=== PATIENT | male | born 2000 | race Caucasian/White ===

== ENCOUNTER 2023-11-21 09:08 | Emergency (ER) | payer OTHER ==
[~2023-11-21] VITALS: Ht 172.7 cm; Wt 67.3 kg
[2023-11-21] MEDS: PANTOPRAZOLE 40MG VIAL IV ONE (10:35)
[2023-11-21 11:10] LABS: BASO % 0.4 % (0.0-1.0); EOS # 0.2 10^3/uL (0.0-0.5); EOS % 1.4 % (0.0-3.0); HEMATOCRIT 48.5 % (42.0-52.0); HEMOGLOBIN 16.1 g/dl (13.5-17.5); LYMPH # 3.5 10^3/uL (1.5-5.0); LYMPH % 32.2 % (24.0-44.0); MEAN CORPUSCULAR HEMOGLOBIN 29.1 pg (27.0-33.0); MEAN CORPUSCULAR HGB CONC 33.2 g/dl (32.0-36.5); MEAN CORPUSCULAR VOLUME 87.7 fl (80.0-96.0); MONO # 0.9 10^3/uL (0.0-0.8); MONO % 8.6 % (2.0-8.0); NEUTROPHILS # 6.1 10^3/uL (1.5-8.5); PLATELET COUNT, AUTOMATED 386 10^3/uL (150-450); RED BLOOD COUNT 5.53 10^6/uL (4.30-6.10); WHITE BLOOD COUNT 10.8 10^3/uL (4.0-10.0)
[2023-11-21 11:34] LABS: ETHYL ALCOHOL (ETHANOL) 0.003 % (0.000-0.010); SALICYLATE LEVEL < 3.0 MG/DL (<30)
[2023-11-21 11:43] LABS: ALBUMIN 4.6 G/DL (3.2-5.2); ALKALINE PHOSPHATASE 70 U/L (46-116); ALT/SGPT 28 U/L (7.0-40); AST/SGOT 52 U/L (<34); BILIRUBIN,DIRECT < 0.1 MG/DL (<0.4); BILIRUBIN,TOTAL 0.5 MG/DL (0.3-1.2); BLOOD UREA NITROGEN 15 MG/DL (9-23); CALCIUM LEVEL 9.3 MG/DL (8.5-10.1); CARBON DIOXIDE LEVEL 30 MMOL/L (20-31); CHLORIDE LEVEL 103 MMOL/L (98-107); CK-MB VALUE MASS < 1.0 NG/ML (<3.6); CPK CREATINE PHOSPHOKINASE 128 U/L (46-171); CREATININE FOR GFR 0.88 MG/DL (0.70-1.30); GLOMERULAR FILTRATION RATE > 60.0 (>60); GLUCOSE, FASTING 94 MG/DL (60-100); LIPASE 44 U/L (12-53); MB/CK RELATIVE INDEX 0.78 (< OR =4); POTASSIUM SERUM 5.7 MMOL/L (3.5-5.1); SODIUM LEVEL 137 MMOL/L (136-145); TOTAL PROTEIN 7.6 G/DL (5.7-8.2)
[2023-11-21 12:52] VITALS: BP 126/73; TEMP 97.2; O2SAT 100
== END 2023-11-21 12:53 | disposition home or self-care (01) ==
LOC: M ED 09:08
DX: K59.00 Constipation, unspecified (principal); K80.80 Other cholelithiasis without obstruction; K30 Functional dyspepsia; R94.31 Abnormal electrocardiogram [ECG] [EKG]
CPT/HCPCS: 74021; 76705; 80047; 80048; 80076; 80143; 82077; 82550; 82553; 83690; 84484; 85025; 93005; 96374; 99284; C9113

== ENCOUNTER 2023-11-28 13:39 | Inpatient (IN) | payer OTHER ==
[~2023-11-28] VITALS: Ht 172.7 cm; Wt 66.9 kg
[2023-11-28 16:26] LABS: BASO % 0.3 % (0.0-1.0); EOS % 0.2 % (0.0-3.0); HEMATOCRIT 49.6 % (42.0-52.0); HEMOGLOBIN 16.7 g/dl (13.5-17.5); LYMPH # 0.9 10^3/uL (1.5-5.0); LYMPH % 5.7 % (24.0-44.0); MEAN CORPUSCULAR HEMOGLOBIN 29.2 pg (27.0-33.0); MEAN CORPUSCULAR HGB CONC 33.7 g/dl (32.0-36.5); MEAN CORPUSCULAR VOLUME 86.7 fl (80.0-96.0); MONO # 0.9 10^3/uL (0.0-0.8); MONO % 5.6 % (2.0-8.0); NEUTROPHILS # 13.5 10^3/uL (1.5-8.5); NEUTROPHILS % 87.9 % (36.0-66.0); PLATELET COUNT, AUTOMATED 372 10^3/uL (150-450); RED BLOOD COUNT 5.72 10^6/uL (4.30-6.10); WHITE BLOOD COUNT 15.4 10^3/uL (4.0-10.0)
[2023-11-28 16:54] LABS: ALBUMIN 4.7 G/DL (3.2-5.2); ALKALINE PHOSPHATASE 94 U/L (46-116); ALT/SGPT 26 U/L (7.0-40); AST/SGOT 17 U/L (<34); BILIRUBIN,DIRECT 0.4 MG/DL (<0.4); BILIRUBIN,TOTAL 1.1 MG/DL (0.3-1.2); BLOOD UREA NITROGEN 16 MG/DL (9-23); CALCIUM LEVEL 9.4 MG/DL (8.5-10.1); CARBON DIOXIDE LEVEL 30 MMOL/L (20-31); CHLORIDE LEVEL 105 MMOL/L (98-107); CREATININE FOR GFR 0.91 MG/DL (0.70-1.30); GLOMERULAR FILTRATION RATE > 60.0 (>60); GLUCOSE, FASTING 100 MG/DL (60-100); POTASSIUM SERUM 4.2 MMOL/L (3.5-5.1); SODIUM LEVEL 141 MMOL/L (136-145); TOTAL PROTEIN 7.8 G/DL (5.7-8.2)
[2023-11-28] MEDS: ONDANSETRON 4MG 2ML VIAL IV ONE (18:18)
[2023-11-28] MEDS: NS 1,000 ML IV ONE (18:18)
[2023-11-28] MEDS: KETOROLAC 30 MG/ML 1ML VIAL IV ONE (18:18)
[2023-11-28 18:34] LABS: LIPASE 31 U/L (12-53)
[2023-11-28] MEDS: PIPERACILLIN/TAZOBACTAM SOD 3.375 GM in D5W MINI-BAG PLUS 50 ML IV ONE (18:40)
[2023-11-28] MEDS ORDERED: MORPHINE 4 MG/ML 1ML VIAL IV PRN (21:40)
[2023-11-28] MEDS ORDERED: ONDANSETRON 4MG 2ML VIAL IV PRN (21:40)
[2023-11-28] MEDS: NS 1,000 ML IV SCH (21:59)
[2023-11-28] MEDS: MORPHINE 2 MG/ML 1ML VIAL IV PRN (22:07)
[2023-11-28] MEDS ORDERED: HOME MED LIST COMPLETE! XX SCH (22:10)
[2023-11-29 00:30] VITALS: BP 118/72; TEMP 98.8; O2SAT 97
[2023-11-29] MEDS: KETOROLAC 30 MG/ML 1ML VIAL IV SCH (00:30)
[2023-11-29] MEDS: PIPERACILLIN/TAZOBACTAM SOD 3.375 GM in D5W MINI-BAG PLUS 50 ML IV SCH (00:30)
[2023-11-29 06:25] VITALS: BP 118/64; TEMP 98.4; O2SAT 97
[2023-11-29 06:37] LABS: BASO % 0.4 % (0.0-1.0); EOS # 0.1 10^3/uL (0.0-0.5); EOS % 1.6 % (0.0-3.0); LYMPH # 1.2 10^3/uL (1.5-5.0); LYMPH % 18.1 % (24.0-44.0); MEAN CORPUSCULAR HEMOGLOBIN 29.4 pg (27.0-33.0); MEAN CORPUSCULAR HGB CONC 33.2 g/dl (32.0-36.5); MEAN CORPUSCULAR VOLUME 88.7 fl (80.0-96.0); MONO # 0.9 10^3/uL (0.0-0.8); MONO % 13.1 % (2.0-8.0); NEUTROPHILS # 4.5 10^3/uL (1.5-8.5); NEUTROPHILS % 66.5 % (36.0-66.0); RED BLOOD COUNT 4.76 10^6/uL (4.30-6.10); WHITE BLOOD COUNT 6.7 10^3/uL (4.0-10.0)
[2023-11-29 06:39] LABS: HEMATOCRIT 42.2 % (42.0-52.0); PLATELET COUNT, AUTOMATED 261 10^3/uL (150-450)
[2023-11-29 07:07] LABS: ALBUMIN 3.3 G/DL (3.2-5.2); ALKALINE PHOSPHATASE 74 U/L (46-116); ALT/SGPT 20 U/L (7.0-40); AST/SGOT 17 U/L (<34); BILIRUBIN,TOTAL 1.8 MG/DL (0.3-1.2); BLOOD UREA NITROGEN 14 MG/DL (9-23); CALCIUM LEVEL 7.8 MG/DL (8.5-10.1); CARBON DIOXIDE LEVEL 30 MMOL/L (20-31); CHLORIDE LEVEL 107 MMOL/L (98-107); CREATININE FOR GFR 1.04 MG/DL (0.70-1.30); GLOMERULAR FILTRATION RATE > 60.0 (>60); GLUCOSE, FASTING 97 MG/DL (60-100); SODIUM LEVEL 141 MMOL/L (136-145); TOTAL PROTEIN 5.6 G/DL (5.7-8.2)
[2023-11-29] MEDS: PANTOPRAZOLE 40MG VIAL IV SCH (10:17)
[2023-11-29] MEDS: MORPHINE 4 MG/ML 1ML VIAL IV PRN (11:38)
[2023-11-29 12:32] VITALS: BP 130/82; TEMP 97.9
[2023-11-29 14:00] VITALS: BP 144/73; TEMP 97.3; O2SAT 95
[2023-11-29 18:00] VITALS: BP 137/91; TEMP 97.9; O2SAT 96
[2023-11-29 22:00] VITALS: BP 116/62; TEMP 97.7; O2SAT 98
[2023-11-30] VITALS (10 sets, daily range): BP systolic 105–158; BP diastolic 56–94; TEMP 97–98.4; O2SAT 93–98
[2023-11-30] MEDS ORDERED: propofoL 200 MG/20 ML VIAL As Ordered ONE (06:52)
[2023-11-30] MEDS ORDERED: ROCURONIUM BROMIDE 50MG/5ML VIAL As Ordered ONE (06:52)
[2023-11-30] MEDS ORDERED: SUGAMMADEX SODIUM 500 MG/5 ML VIAL (BRIDION) As Ordered ONE (06:52)
[2023-11-30] MEDS ORDERED: KETOROLAC 60MG 2ML VIAL As Ordered ONE (06:53)
[2023-11-30] MEDS ORDERED: LIDOCAINE 2% 100MG/5ML SDV (FOR ANES.) As Ordered ONE (06:53)
[2023-11-30] MEDS ORDERED: ONDANSETRON 4MG 2ML VIAL As Ordered ONE (06:53)
[2023-11-30] MEDS ORDERED: MIDAZOLAM INJ 2MG/2ML VIAL As Ordered ONE (07:00)
[2023-11-30] MEDS ORDERED: fentaNYL 250 MCG/5 ML INJECTION As Ordered ONE (07:00)
[2023-11-30] MEDS ORDERED: ISOVUE-M 300 61% 15ML VIAL As Ordered ONE (07:07)
[2023-11-30] MEDS ORDERED: ACETAMINOPHEN 1000MG 100ML IV BAG As Ordered ONE (07:40)
[2023-11-30] MEDS ORDERED: ONDANSETRON 4MG 2ML VIAL IV PRN (08:45)
[2023-11-30] MEDS ORDERED: fentaNYL 100 MCG/2 ML INJECTION IV PRN (08:45)
[2023-11-30] MEDS: LR 1,000 ML IV SCH (08:45)
[2023-11-30] MEDS: HYDROMORPHONE HCL 0.5 MG/ 0.5 ML SYRINGE IV PRN (08:59)
[2023-11-30] MEDS: KETOROLAC 30 MG/ML 1ML VIAL IV SCH (09:00)
[2023-11-30] MEDS: oxyCODONE 5MG TAB PO PRN (09:25)
[2023-11-30 10:58] LABS: BASO % 0.4 % (0.0-1.0); EOS % 0.5 % (0.0-3.0); HEMATOCRIT 42.7 % (42.0-52.0); HEMOGLOBIN 14.4 g/dl (13.5-17.5); LYMPH # 0.9 10^3/uL (1.5-5.0); LYMPH % 11.6 % (24.0-44.0); MEAN CORPUSCULAR HEMOGLOBIN 29.1 pg (27.0-33.0); MEAN CORPUSCULAR HGB CONC 33.7 g/dl (32.0-36.5); MEAN CORPUSCULAR VOLUME 86.4 fl (80.0-96.0); MONO # 0.3 10^3/uL (0.0-0.8); MONO % 3.7 % (2.0-8.0); NEUTROPHILS # 6.3 10^3/uL (1.5-8.5); NEUTROPHILS % 83.5 % (36.0-66.0); PLATELET COUNT, AUTOMATED 296 10^3/uL (150-450); RED BLOOD COUNT 4.94 10^6/uL (4.30-6.10); WHITE BLOOD COUNT 7.6 10^3/uL (4.0-10.0)
[2023-11-30 11:43] LABS: ALBUMIN 3.6 G/DL (3.2-5.2); ALKALINE PHOSPHATASE 87 U/L (46-116); ALT/SGPT 49 U/L (7.0-40); AST/SGOT 63 U/L (<34); BILIRUBIN,TOTAL 1.3 MG/DL (0.3-1.2); BLOOD UREA NITROGEN 9 MG/DL (9-23); CALCIUM LEVEL 8.5 MG/DL (8.5-10.1); CARBON DIOXIDE LEVEL 26 MMOL/L (20-31); CHLORIDE LEVEL 106 MMOL/L (98-107); CREATININE FOR GFR 1.01 MG/DL (0.70-1.30); GLOMERULAR FILTRATION RATE > 60.0 (>60); GLUCOSE, FASTING 123 MG/DL (60-100); POTASSIUM SERUM 3.6 MMOL/L (3.5-5.1); SODIUM LEVEL 139 MMOL/L (136-145); TOTAL PROTEIN 6.3 G/DL (5.7-8.2)
[2023-12-01 03:00] VITALS: BP 109/55; TEMP 97.9; O2SAT 98
[2023-12-01 06:55] VITALS: BP 110/51; TEMP 97.9; O2SAT 98
[2023-12-01 07:03] LABS: BASO % 0.4 % (0.0-1.0); EOS # 0.1 10^3/uL (0.0-0.5); HEMATOCRIT 40.2 % (42.0-52.0); HEMOGLOBIN 13.5 g/dl (13.5-17.5); LYMPH # 2.6 10^3/uL (1.5-5.0); MEAN CORPUSCULAR HEMOGLOBIN 29.2 pg (27.0-33.0); MEAN CORPUSCULAR HGB CONC 33.6 g/dl (32.0-36.5); MONO % 13.9 % (2.0-8.0); NEUTROPHILS # 3.5 10^3/uL (1.5-8.5); NEUTROPHILS % 48.4 % (36.0-66.0); PLATELET COUNT, AUTOMATED 286 10^3/uL (150-450); RED BLOOD COUNT 4.62 10^6/uL (4.30-6.10); WHITE BLOOD COUNT 7.1 10^3/uL (4.0-10.0)
[2023-12-01 07:32] LABS: ALBUMIN 3.1 G/DL (3.2-5.2); ALKALINE PHOSPHATASE 88 U/L (46-116); ALT/SGPT 81 U/L (7.0-40); AST/SGOT 50 U/L (<34); BILIRUBIN,TOTAL 0.6 MG/DL (0.3-1.2); BLOOD UREA NITROGEN 6 MG/DL (9-23); CALCIUM LEVEL 8.3 MG/DL (8.5-10.1); CARBON DIOXIDE LEVEL 29 MMOL/L (20-31); CHLORIDE LEVEL 107 MMOL/L (98-107); GLOMERULAR FILTRATION RATE > 60.0 (>60); GLUCOSE, FASTING 91 MG/DL (60-100); POTASSIUM SERUM 3.8 MMOL/L (3.5-5.1); SODIUM LEVEL 142 MMOL/L (136-145); TOTAL PROTEIN 5.7 G/DL (5.7-8.2)
[2023-12-01] MEDS ORDERED: IBUP-1022 PO (10:10)
[2023-12-01] MEDS ORDERED: HYDR-3713 PO (10:16)
== END 2023-12-01 11:10 | disposition home or self-care (01) | DRG 419 ==
LOC: M ED 13:39 → M ED INP 21:38 → ENRESERV 11-29 12:14 → M MS5PR 11-29 12:25
PROVIDERS: ADMIT Surgery; ATTEND Surgery
PROC: 0FT44ZZ Resection of Gallbladder, Percutaneous Endoscopic Approach (ICD-10-PCS; principal; 2023-11-29)
DX: K81.0 Acute cholecystitis (principal)

== ENCOUNTER 2023-12-13 18:56 | Emergency (ER) | payer OTHER ==
[~2023-12-13] VITALS: Ht 172.7 cm; Wt 65.6 kg
[~2023-12-13 18:56] MED LIST: HYDR-3713 PO; IBUP-1022 PO
[2023-12-13 19:55] LABS: BASO # 0.1 10^3/uL (0.0-0.2); BASO % 0.7 % (0.0-1.0); EOS # 0.7 10^3/uL (0.0-0.5); EOS % 5.2 % (0.0-3.0); HEMATOCRIT 45.4 % (42.0-52.0); HEMOGLOBIN 14.9 g/dl (13.5-17.5); LYMPH % 30.3 % (24.0-44.0); MEAN CORPUSCULAR HEMOGLOBIN 28.8 pg (27.0-33.0); MEAN CORPUSCULAR HGB CONC 32.8 g/dl (32.0-36.5); MEAN CORPUSCULAR VOLUME 87.8 fl (80.0-96.0); MONO # 1.3 10^3/uL (0.0-0.8); MONO % 9.4 % (2.0-8.0); NEUTROPHILS # 7.2 10^3/uL (1.5-8.5); NEUTROPHILS % 54.1 % (36.0-66.0); PLATELET COUNT, AUTOMATED 384 10^3/uL (150-450); RED BLOOD COUNT 5.17 10^6/uL (4.30-6.10); WHITE BLOOD COUNT 13.3 10^3/uL (4.0-10.0)
[2023-12-13 20:18] LABS: LIPASE 53 U/L (12-53)
[2023-12-13 20:19] LABS: CK-MB VALUE MASS < 1.0 NG/ML (<3.6)
[2023-12-13 20:20] LABS: ALBUMIN 4.3 G/DL (3.2-5.2); ALKALINE PHOSPHATASE 102 U/L (46-116); ALT/SGPT 76 U/L (7.0-40); AST/SGOT 23 U/L (<34); BILIRUBIN,DIRECT 0.2 MG/DL (<0.4); BILIRUBIN,TOTAL 0.4 MG/DL (0.3-1.2); BLOOD UREA NITROGEN 16 MG/DL (9-23); CALCIUM LEVEL 9.6 MG/DL (8.5-10.1); CARBON DIOXIDE LEVEL 30 MMOL/L (20-31); CHLORIDE LEVEL 105 MMOL/L (98-107); CPK CREATINE PHOSPHOKINASE 75 U/L (46-171); CREATININE FOR GFR 0.86 MG/DL (0.70-1.30); GLOMERULAR FILTRATION RATE > 60.0 (>60); GLUCOSE, FASTING 90 MG/DL (60-100); MB/CK RELATIVE INDEX 1.33 (< OR =4); POTASSIUM SERUM 4.3 MMOL/L (3.5-5.1); SODIUM LEVEL 140 MMOL/L (136-145); TOTAL PROTEIN 7.2 G/DL (5.7-8.2)
[2023-12-14 04:50] LABS: INR 1.01
[2023-12-14] MEDS ORDERED: ISOVUE-370 76% 100ML VIAL As Ordered ONE (04:58)
[2023-12-14 05:12] LABS: CK-MB VALUE MASS < 1.0 NG/ML (<3.6); CPK CREATINE PHOSPHOKINASE 101 U/L (46-171); MB/CK RELATIVE INDEX 0.99 (< OR =4)
[2023-12-14 05:40] VITALS: BP 139/89; TEMP 98.8; O2SAT 98
[2023-12-14] MEDS: KETOROLAC 30 MG/ML 1ML VIAL IV ONE (06:12)
[2023-12-14] MEDS: NS 1,000 ML IV ONE (06:12)
[2023-12-14] MEDS ORDERED: KETO10TAB PO (06:53)
== END 2023-12-14 07:00 | disposition home or self-care (01) ==
LOC: M ED 18:56
DX: R07.9 Chest pain, unspecified (principal); I49.40 Unspecified premature depolarization; F17.200 Nicotine dependence, unspecified, uncomplicated; Z79.1 Long term (current) use of non-steroidal anti-inflammatories (NSAID); Z79.899 Other long term (current) drug therapy
CPT/HCPCS: 71045; 71275; 80048; 80076; 82550; 82553; 83690; 84484; 85025; 85610; 93005; 93041; 94760; 96374; 99285; J1885; Q9967

== ENCOUNTER 2024-01-04 21:40 | Inpatient (IN) | payer OTHER ==
[~2024-01-04] VITALS: Ht 172.7 cm; Wt 62.9 kg
[~2024-01-04 21:40] MED LIST changes: +KETO10TAB PO
[2024-01-04 22:43] LABS: HEMATOCRIT 42.5 % (42.0-52.0); HEMOGLOBIN 14.7 g/dl (13.5-17.5); MEAN CORPUSCULAR HEMOGLOBIN 29.5 pg (27.0-33.0); MEAN CORPUSCULAR HGB CONC 34.6 g/dl (32.0-36.5); MEAN CORPUSCULAR VOLUME 85.2 fl (80.0-96.0); PLATELET COUNT, AUTOMATED 339 10^3/uL (150-450); RED BLOOD COUNT 4.99 10^6/uL (4.30-6.10); WHITE BLOOD COUNT 15.8 10^3/uL (4.0-10.0)
[2024-01-04 23:06] LABS: AMPHETAMINES LEVEL URINE NEGATIVE (NEGATIVE); BARBITURATES URINE NEGATIVE (NEGATIVE); BENZODIAZEPINES URINE NEGATIVE (NEGATIVE); CANNABINOIDS URINE NEGATIVE (NEGATIVE); COCAINE METABOLITE URINE NEGATIVE (NEGATIVE); METHADONE URINE NEGATIVE (NEGATIVE); OPIATES URINE NEGATIVE (NEGATIVE); PHENCYCLIDINE URINE NEGATIVE (NEGATIVE)
[2024-01-04 23:07] LABS: ALBUMIN 4.3 G/DL (3.2-5.2); ALKALINE PHOSPHATASE 79 U/L (46-116); ALT/SGPT 32 U/L (7.0-40); AST/SGOT 25 U/L (<34); BILIRUBIN,DIRECT < 0.1 MG/DL (<0.4); BILIRUBIN,TOTAL 0.6 MG/DL (0.3-1.2); BLOOD UREA NITROGEN 13 MG/DL (9-23); CALCIUM LEVEL 9.6 MG/DL (8.5-10.1); CARBON DIOXIDE LEVEL 26 MMOL/L (20-31); CHLORIDE LEVEL 107 MMOL/L (98-107); GLOMERULAR FILTRATION RATE > 60.0 (>60); GLUCOSE, FASTING 108 MG/DL (60-100); POTASSIUM SERUM 3.9 MMOL/L (3.5-5.1); SALICYLATE LEVEL < 3.0 MG/DL (<30); SODIUM LEVEL 141 MMOL/L (136-145)
[2024-01-04 23:09] LABS: THYROID STIMULATING HORMONE 0.755 uIU/ML (0.55-4.78)
[2024-01-04 23:46] LABS: ETHYL ALCOHOL (ETHANOL) < 0.003 % (0.000-0.010)
[2024-01-05] MEDS ORDERED: HOME MED LIST COMPLETE! XX SCH (06:40)
[2024-01-05] MEDS ORDERED: ACETAMINOPHEN TAB 650MG DOSE (2X325MG) PO PRN (13:05)
[2024-01-05] MEDS ORDERED: diphenhydrAMINE 25MG CAP PO PRN (13:05)
[2024-01-05] MEDS ORDERED: traZODone 50 MG TAB PO PRN (13:05)
[2024-01-05] MEDS ORDERED: MAALOX 30 ML SUSP *UDC PO PRN (13:05)
[2024-01-05] MEDS ORDERED: MOM 30ML SUSPENSION UDC PO PRN (13:05)
[2024-01-05 16:57] VITALS: BP 131/65; TEMP 98.3; O2SAT 98
[2024-01-06 05:45] VITALS: BP 123/82; TEMP 97.6; O2SAT 96
[2024-01-06 16:17] VITALS: BP 133/76; TEMP 98.4; O2SAT 97
[2024-01-06] MEDS: MIRTAZAPINE 7.5MG PER 1/2 TABLET PO SCH (21:38)
[2024-01-07 06:42] VITALS: BP 125/90; TEMP 97; O2SAT 99
[2024-01-07 07:01] LABS: CHOLESTEROL RISK RATIO 3.87 (<5); HDL CHOLESTEROL 36.4 MG/DL (>40); LDL CHOLESTEROL 88.2 MG/DL (<100); NON-HDL-C 104.6 MG/DL
[2024-01-07 16:18] VITALS: BP 127/73; TEMP 97.3; O2SAT 97
[2024-01-08 06:39] VITALS: BP 121/67; TEMP 97.5; O2SAT 97
[2024-01-08 16:21] VITALS: BP 122/82; TEMP 98.4; O2SAT 98
[2024-01-09 06:21] VITALS: BP 131/76; TEMP 98.4; O2SAT 99
[2024-01-09] MEDS: IBUPROFEN 400MG TAB PO PRN (15:18)
[2024-01-09 17:28] VITALS: BP 119/76; TEMP 98.3; O2SAT 96
[2024-01-09] MEDS: MIRTAZAPINE 15 MG TAB PO SCH (20:41)
[2024-01-10 06:17] VITALS: BP 147/90; TEMP 98.2; O2SAT 99
[2024-01-10 17:38] VITALS: BP 134/76; TEMP 98.2; O2SAT 96
[2024-01-11 06:18] VITALS: BP 138/82; TEMP 98.3; O2SAT 97
[2024-01-11] MEDS ORDERED: MIRT-10 PO (09:29)
== END 2024-01-11 12:55 | disposition home or self-care (01) | DRG 885 ==
LOC: M ED 21:40 → EDBD 21:40 → M ED INP 01-05 13:05 → M PSY 01-05 16:50
PROVIDERS: ADMIT Student in an Organized Health Care Education/Training Program; ATTEND Student in an Organized Health Care Education/Training Program
DX: F33.1 Major depressive disorder, recurrent, moderate (principal); R45.851 Suicidal ideations; F43.10 Post-traumatic stress disorder, unspecified; F60.89 Other specific personality disorders; F90.9 Attention-deficit hyperactivity disorder, unspecified type; F41.9 Anxiety disorder, unspecified; Z91.51 Personal history of suicidal behavior; Z63.0 Problems in relationship with spouse or partner; Z81.8 Family history of other mental and behavioral disorders; Z62.810 Personal history of physical and sexual abuse in childhood; Z62.811 Personal history of psychological abuse in childhood; Z90.49 Acquired absence of other specified parts of digestive tract

== ENCOUNTER 2024-10-22 17:57 | Emergency (ER) | payer OTHER ==
[~2024-10-22] VITALS: Ht 172.7 cm; Wt 72.3 kg
[~2024-10-22 17:57] MED LIST changes: +MIRT-10 PO
[2024-10-22 18:00] VITALS: BP 159/83; TEMP 97.9; O2SAT 98
== END 2024-10-22 21:35 | disposition home or self-care (01) ==
LOC: M ED 17:57
DX: S80.02XA Contusion of left knee, initial encounter (principal); Y92.019 Unspecified place in single-family (private) house as the place of occurrence of the external cause; Y93.9 Activity, unspecified; Y99.9 Unspecified external cause status; F41.9 Anxiety disorder, unspecified; F32.A Depression, unspecified